=== PATIENT | male | born 1995 | race African-American/Black ===

== ENCOUNTER 2018-02-23 20:16 | Emergency (ER) | payer SELFPAY, MEDICAID ==
[~2018-02-23] VITALS: Ht 185.4 cm; Wt 94.8 kg
[2018-02-23] MEDS ORDERED: Albuterol/Ipratropium 3ml neb HHN ONE (20:30)
[2018-02-23] MEDS ORDERED: ALBUTEROL SULF8.5 GM INH (20:41)
[2018-02-23] MEDS ORDERED: QVAR7.3 G2 IH (20:41)
[2018-02-23 21:00] VITALS: BP 122/80
--- NOTE | 2018-02-23 21:31 | Emergency Room Report ---
History of Present Illness General Chief Complaint: Medical Clearance Source: Patient Present Illness HPI Patient is a 23-year-old male brought in by Business Area Manager for medical clearance. Patient had reportedly been having increased anxiety after being arrested. Patient reports having prior history of asthma. He denies any cough. He reports having no recent trauma. He denies any leg pain or swelling. He states he feels somewhat anxious. Allergies: Coded Allergies: No Known Allergies (Unverified , 02/23/18) Patient History Past Medical History: see triage record Reviewed Nursing Documentation: PMH: Agreed; PSxH: Agreed Nursing Documentation-PMH Past Medical History: No History, Except For Hx Asthma: Yes Review of Systems All Other Systems: negative except mentioned in HPI Physical Exam Vital Signs Date Time Temp Pulse Resp B/P (MAP) Pulse Ox O2 Delivery O2 Flow Rate FiO2 02/23/18 20:22 97.9 76 14 122/80 99 Room Air 97.9 Sp02 EP Interpretation: reviewed, normal General Appearance: normal inspection, well appearing, no apparent distress, alert, GCS 15 Head: atraumatic ENT: normal ENT inspection, hearing grossly normal, normal voice Neck: normal inspection, full range of motion, supple, no bony tend Respiratory: normal inspection, lungs clear, normal breath sounds, no respiratory distress, no retraction, no wheezing Cardiovascular #1: regular rate, rhythm, no edema Gastrointestinal: normal inspection, normal bowel sounds, non tender, soft, no guarding, no hernia Genitourinary: no CVA tenderness Musculoskeletal: normal inspection, back normal, normal range of motion Neurologic: normal inspection, alert, oriented x3, responsive, director mba III-XII nml as tested, speech normal Psychiatric: normal inspection, judgement/insight normal, mood/affect normal Skin: normal inspection, normal color, no rash Medical Decision Making Diagnostic Impression: Primary Impression: Asthma ER Course Patient presented for chest pain. Differential diagnosis included but was not limited to acute coronary syndrome, pulmonary embolism, pneumonia, aortic dissection, shingles, pneumothorax, aortic dissection, esophageal rupture, pericarditis. The patient was given a breathing treatment. The patient was noted to have the chest x-ray which showed no evidence of pneumothorax or pleural effusion, cardiac size was normal. The EKG interpreted by me showed normal sinus rhythm with rate of [address] or T wave changes. The patient was given a breathing treatment. Patient was medically cleared for booking.The patient was given a breathing treatment as well as prescriptions for inhalers.At the time of discharge patient was awake alert oriented and able to move air well. EKG Diagnostic Results Rate: normal Rhythm: NSR ST Segments: no acute changes Rhythm Strip Diag. Results EP Interpretation: yes Rhythm: NSR, no PVC's, no ectopy Last Vital Signs Date Time Temp Pulse Resp B/P (MAP) Pulse Ox O2 Delivery O2 Flow Rate FiO2 02/23/18 20:53 89 20 Room Air 02/23/18 20:51 100 02/23/18 20:22 97.9 122/80 97.9 Status: improved Disposition: D/C TO LAW ENFORCEMENT IN [facility] Condition: Stable Scripts Beclomethasone Dipropionate (Qvar) 8.7 Gm Aer.w.adap 7.3 GM IH DAILY, #1 GM Prov: Bc Farrell MD 02/23/18 Albuterol Sulfate* (ALBUTEROL SULFATE MDI*) 8.5 Gm Hfa.aer.ad 2 PUFF INH Q6H, #1 INH 0 Refills Prov: Bc Farrell MD 02/23/18 Referrals: NON PHYSICIAN (PCP) Departure Forms: [facility] Clearance Patient Instructions: Asthma, Adult Bc Farrell MD Feb 23, 2018 21:31
--- NOTE | 2018-02-23 21:35 | Diagnostic Imaging Report ---
EXAM: XR Chest, 1 View CLINICAL HISTORY: SOB TECHNIQUE: Frontal view of the chest. COMPARISON: No relevant prior studies available. FINDINGS: Lungs: Unremarkable. No consolidation. Pleural space: Unremarkable. No pneumothorax. Heart: Unremarkable. No cardiomegaly. Mediastinum: Unremarkable. Bones/joints: Unremarkable. IMPRESSION: Normal chest x-ray.
[2018-02-23 21:45] VITALS: BP 122/80
--- NOTE | 2018-02-24 12:09 | Cardiology Report ---
APPROVED REPORT EKG Measurement Heart [id number] Normal sinus rhythm Early repolarization Normal ECG
== END 2018-02-23 21:45 ==
LOC: EMR 21:05
DX: J45.909 Unspecified asthma, uncomplicated (principal); F41.9 Anxiety disorder, unspecified
CPT/HCPCS: 71045; 93005; 94640; 94664; 99284; J7620